=== PATIENT | male | born 1995 | race Caucasian/White ===

== ENCOUNTER 2023-02-18 11:42 | Emergency (ER) | payer OTHER ==
[~2023-02-18] VITALS: Ht 177.8 cm; Wt 82.5 kg
[2023-02-18 11:42] VITALS: BP 137/70
[2023-02-18] MEDS ORDERED: LIDOCAINE W/EPINEPHRINE 1% 20ML VIAL SC ONE (13:30)
[2023-02-18] MEDS ORDERED: NEOSPORIN OINT 0.9 GM PKT TOP ONE (14:20)
== END 2023-02-18 14:34 | disposition home or self-care (01) ==
LOC: M ED 11:42
DX: S09.90XA Unspecified injury of head, initial encounter (principal); S41.112A Laceration without foreign body of left upper arm, initial encounter; W10.8XXA Fall (on) (from) other stairs and steps, initial encounter; Y92.009 Unspecified place in unspecified non-institutional (private) residence as the place of occurrence of the external cause; Y93.01 Activity, walking, marching and hiking; Y99.8 Other external cause status

== ENCOUNTER 2024-01-06 06:47 | Emergency (ER) | payer OTHER ==
[~2024-01-06] VITALS: Ht 180.3 cm; Wt 89.0 kg
[2024-01-06 06:48] VITALS: BP 129/68; TEMP 100.3; O2SAT 94
== END 2024-01-06 09:49 | disposition home or self-care (01) ==
LOC: M ED 06:47
DX: J09.X2 Influenza due to identified novel influenza A virus with other respiratory manifestations (principal)

== ENCOUNTER 2024-05-14 11:13 | Emergency (ER) | payer OTHER ==
[~2024-05-14] VITALS: Ht 180.3 cm; Wt 88.6 kg
[2024-05-14] MEDS: LIDOCAINE W/EPINEPHRINE 1% 20ML VIAL SC ONE (14:58)
[2024-05-14] MEDS ORDERED: BACT800T5 PO (15:02)
[2024-05-14] MEDS: BACTRIM 160MG/800MG DS TAB PO ONE (15:06)
[2024-05-14 15:27] VITALS: BP 110/65; TEMP 97.8; O2SAT 100
== END 2024-05-14 15:30 | disposition home or self-care (01) ==
LOC: M ED 11:13
DX: L02.211 Cutaneous abscess of abdominal wall (principal); Z79.2 Long term (current) use of antibiotics

== ENCOUNTER 2024-07-05 16:53 | Emergency (ER) | payer OTHER ==
[~2024-07-05] VITALS: Ht 182.9 cm; Wt 88.6 kg
[~2024-07-05 16:53] MED LIST: BACT800T5 PO
[2024-07-05 19:57] VITALS: BP 138/74; TEMP 97.9; O2SAT 98
== END 2024-07-05 19:57 | disposition home or self-care (01) ==
LOC: M ED 16:54
DX: Z48.00 Encounter for change or removal of nonsurgical wound dressing (principal)